=== PATIENT | female | born 2000 | race Caucasian/White ===

== ENCOUNTER → 2022-07-23 | Outpatient (REF) | payer BC ==
[2022-07-23 14:03] LABS: GC DNA AMPLIFICATION NEGATIVE (NEGATIVE)
== END ==
LOC: M LAB REF 12:06
PROVIDERS: ATTEND Physician Assistant
DX: R30.0 Dysuria (principal)

== ENCOUNTER → 2022-07-25 | Outpatient (REF) | payer BC | LOC: M LAB REF 20:18 | PROVIDERS: ATTEND Student in an Organized Health Care Education/Training Program | DX: R30.0 Dysuria (principal) ==

== ENCOUNTER → 2022-10-14 | Outpatient (REF) | payer BC | LOC: M WUC 16:31 | PROVIDERS: ATTEND Student in an Organized Health Care Education/Training Program | DX: R30.0 Dysuria (principal) ==

== ENCOUNTER → 2022-11-23 | Outpatient (CLI) | payer BC | LOC: M WHC 14:17 | PROVIDERS: ATTEND Physician Assistant | DX: N83.202 Unspecified ovarian cyst, left side (principal); R10.2 Pelvic and perineal pain ==

== ENCOUNTER → 2023-05-13 | Outpatient (REF) | payer BC | LOC: M SFHCWAGY 17:58 | PROVIDERS: ATTEND Nurse Practitioner Family | DX: Z12.4 Encounter for screening for malignant neoplasm of cervix (principal) ==